=== PATIENT | male | born 1950 | race Two or more races ===

== ENCOUNTER → 2024-12-13 | Outpatient (CLI) | payer MEDICARE, MEDICAID, SELFPAY ==
[2024-12-13 13:09] LABS: Prostate Specific Antigen 2.53 ng/mL (0-4.00)
== END | disposition home or self-care (01) ==
LOC: COPL 11:55
PROVIDERS: PCP Family Medicine; Referring Provider Family Medicine; Visit Provider Family Medicine
DX: N42.9 Disorder of prostate, unspecified (principal)
CPT/HCPCS: 36415; 84153

== ENCOUNTER → 2025-03-28 | Outpatient (CLI) | payer MEDICARE, MEDICAID, SELFPAY ==
--- NOTE | 2025-03-28 15:54 | XR_ITS ---
EXAMINATION: Ankle, right 2 views. Technique: Ankle AP, lateral 2 views Date and time of exam: March 28, 2025 1604 hours INDICATIONS: Injured ankle one month ago ankle pain. FINDINGS: Medial malleolar soft tissue swelling No fracture or dislocation [id number] osteoarthritis tibiotalar joint IMPRESSION: No acute fracture
== END | disposition home or self-care (01) ==
PROVIDERS: PCP Family Medicine; Referring Provider Family Medicine; Visit Provider Family Medicine
DX: S99.911A Unspecified injury of right ankle, initial encounter (principal); X58.XXXA Exposure to other specified factors, initial encounter
CPT/HCPCS: 73600